=== PATIENT | female | born 1955 | race Caucasian/White ===

== ENCOUNTER 2019-01-05 10:21 | Outpatient (CLI) | payer BC ==
--- NOTE | 2019-01-05 14:18 | PET ---
PET SCAN DEMENTIA 01/05/19 HISTORY: 63-year-old female with Alzheimer's disease with early onset. TECHNIQUE: PET scanning of the brain with CT attenuation correction is performed following the intravenous admin istration of 7.3 millicuries of 15-fluorodeoxyglucose in the left hand. FINDINGS: No significant cortical hypometabolism is seen in the temporoparietal lobes. Fairly symmetric tracer distribution is seen in both hemispheres. IMPRESSION: No definite evidence of Alzheimer's dementia. POS: [facility]
== END 2019-01-05 10:22 | disposition home or self-care (01) ==
LOC: PET 10:21
PROVIDERS: ATTEND Psychiatry & Neurology Neurology
DX: G30.0 Alzheimer's disease with early onset (principal)
CPT/HCPCS: 78608; A9552